=== PATIENT | female | born 1990 | race Caucasian/White ===

== ENCOUNTER 2016-07-17 11:30 | Emergency (ER) | payer BC ==
[~2016-07-17] VITALS: Ht 144.8 cm; Wt 47.6 kg
[~2016-07-17 11:30] MED LIST: AMOX500C PO; ONDA4TAB10 SL; SULF1TAB24 PO
[2016-07-17] MEDS ORDERED: birth control PO (11:50)
--- NOTE | 2016-07-17 12:21 | PHYS DOC ---
Past Medical History Past Medical History: No Pertinent History Past Surgical History: No Surgical History Alcohol Use: None Drug Use: None Adult General Chief Complaint Chief Complaint: SYNCOPE HPI HPI Patient is a 26 year old female who presents after a syncopal episode. Patient reports that she was at work when she bent over; as she stood back up she got lightheaded and lost consciousness. She says she hit her head when she fell and now has c/o throbbing HUI. No chest discomfort or SOB at this time. No prior similar episodes. No other acute complaints. Review of Systems Review of Systems Constitutional: Syncope. Denies fever or chills Eyes: Denies change in visual acuity or eye pain HENT: Denies nasal congestion or sore throat Respiratory: Denies cough or shortness of breath Cardiovascular: Denies chest pain at this time GI: Denies abdominal pain, nausea, vomiting, bloody stools or diarrhea : Denies dysuria or hematuria Musculoskeletal: Denies back pain or joint pain Integument: Denies rash or skin lesions Neurologic: Headache. Denies focal weakness or sensory changes Current Medications Current Medications Current Medications Medications (Trade) Dose Ordered Sig/Glenys Start Time Stop Time Status Last Admin Dose Admin Acetaminophen (Tylenol) 1,000 mg 1X ONCE 07/17/16 12:30 07/17/16 12:31 DC 07/17/16 13:17 1,000 MG Ciprofloxacin (Cipro) 500 mg 1X ONCE 07/17/16 13:30 07/17/16 13:31 DC 07/17/16 13:39 500 MG Allergies Allergies Allergies Coded Allergies Type Severity Reaction Last Updated Verified No Known Drug Allergies 07/17/16 No Physical Exam Physical Exam Constitutional: Well developed, well nourished, no acute distress, non-toxic appearance HENT: Normocephalic, bilateral external ears normal, no sign of trauma (no hematoma, abrasions noted) Eyes: PERRL, EOMI, conjunctiva normal, no discharge Neck: Normal range of motion, no stridor. No midline TTP, no stepoff or deformity Cardiovascular: Heart rate normal, regular rhythm, no murmur Lungs & Thorax: Bilateral breath sounds clear to auscultation Abdomen: Bowel sounds normal, soft, non-distended, no TTP Skin: Warm, dry, no erythema, no rash Back: No midline tenderness, no stepoff or deformity Extremities: No obvious deformity, no edema Neurologic: Alert and oriented X 3, GCS 15, CN II-XII grossly intact, strength intact and symmetrical throughout, sensation to light touch intact throughout, no dystaxia noted Current Patient Data Vital Signs Vital Signs Date Time Temp Pulse Resp B/P Pulse Ox O2 Delivery O2 Flow Rate FiO2 07/17/16 13:55 66 16 115/71 100 Room Air 07/17/16 11:50 98.2 98.2 Lab Values Laboratory Tests Test 07/17/16 12:09 Urine Collection Type Unknown Urine Color Yellow Urine Clarity Clear Urine pH 6.0 Urine Specific [place] 1.020 Urine Protein Negativemg/dL (NEG-TRACE) Urine Glucose (UA) Negativemg/dL (NEG) Urine Ketones (Stick) Negativemg/dL (NEG) Urine Blood Negative (NEG) Urine Nitrite Positive (NEG) Urine Bilirubin Negative (NEG) Urine Urobilinogen Dipstick 0.2mg/dL (0.2 mg/dL) Urine Leukocyte Esterase Small (NEG) Urine RBC 0/HPF (0-2) Urine WBC 5-10/HPF (0-4) Urine Squamous Epithelial Cells Mod/LPF Urine Bacteria Many/HPF (0-FEW) Urine Mucus Marked/LPF Urine Test Negative (NEG) EKG EKG EKG (my read): sinus rhythm, rate 65, normal axis, intervals wnl, no acute ischemic changes Radiology/Procedures Radiology/Procedures CT head: IMPRESSION: The CT of the head without contrast reveals no significant abnormal. CXR: IMPRESSION: No acute cardiopulmonary abnormality is detected. Course & Med Decision Making Course & Med Decision Making Pertinent Labs and Imaging studies reviewed. (See chart for details) Patient is 26 year old female who presents after syncopal episode. Likely due to orthostasis given history. No concerning findings on physical exam. Will obtain CXR, CT head, EKG, UA, urine preg screen. Dose of acetaminophen ordered for HUI. Imaging results as above. EKG ok per my read. UA indicative of UTI; dose of cipro ordered. Discussed results with patient, who is feeling better at this time. Will plan discharge home with rx for cipro, instructions for follow up, return precautions. Dragon Disclaimer Dragon Disclaimer This electronic medical record was generated, in whole or in part, using a voice recognition dictation system. Departure Departure Impression: Primary Impression: Syncope Additional Impression: UTI (urinary tract infection) Disposition: HOME, SELF-CARE Condition: IMPROVED Referrals: NO PCP (PCP) Patient Instructions: Syncope, Urinary Tract Infection Additional Instructions: Thank you for allowing us to provide care today in the Emergency Department. Take the provided medication as directed. Schedule a follow up appointment with your primary care doctor. Return promptly to the Emergency Department if you develop any new or concerning symptoms. Scripts Ciprofloxacin Hcl (Cipro)500 Mg Tablet1 Tab PO BID #10 TAB Prov:BETTE CAMARENA MD 07/17/16 Problem Qualifiers BETTE CAMARENA MD Jul 17, 2016 12:21
--- NOTE | 2016-07-17 12:28 | EKG ---
[facility] [address] [place] [address] Test Date: 2016-07-17 Test Time: 12:05:02 Pat Name: MONA GREER Department: Room: Gender: F Hospital Coder: : [id number] Requested By: BETTE CAMARENA Order Number: [id number] Reading MD: Francie Hamilton Measurements Intervals Ione Rate: 65 P: 0 NM: 164 QRS: 70 QRSD: 74 T: 18 QT: 366 QTc: 381 Interpretive Statements SINUS RHYTHM QRS(T) CONTOUR ABNORMALITY CONSISTENT WITH ANTEROSEPTAL MYOCARDIAL DAMAGE ABNORMAL ECG RI6.01 No previous ECG available for comparison Electronically Signed On 07-20-2016 0:03:48 FOOD STYLIST by Francie Hamilton
[2016-07-17] MEDS ORDERED: ACETAMINOPHEN 500 MG TABLET PO ONE (12:30)
[2016-07-17 12:37] LABS: NEG OBC UR NEG; POS OBC UR POS
[2016-07-17 12:41] LABS: BILIRUBIN,URINE NEGATIVE (NEG); GLUCOSE,URINE NEGATIVE (NEG); NITRITE,URINE POSITIVE (NEG); PROTEIN,URINE NEGATIVE (NEG-TRACE); UROBILINOGEN,URINE 0.2 mg/dL (0.2 mg/dL)
[2016-07-17 12:48] LABS: RBC,URINE 0 /HPF (0-2)
[2016-07-17 12:49] LABS: BACTERIA,URINE MANY /HPF (0-FEW); SQUAMOUS EPITHELIAL CELL,UR MOD /LPF
--- NOTE | 2016-07-17 13:14 | RAD ---
CT of the head without contrast, 07/17/2016: History: Headache The ventricles are within normal limits in size. There is no shift of the midline structures. There is no evidence of acute intracranial hemorrhage or mass effect. IMPRESSION: The CT of the head without contrast reveals no significant abnormal. PQRS Compliance Statement: One or more of the following individualized dose reduction techniques were utilized for this examination: 1. Automated exposure control 2. Adjustment of the mA and/or kV according to patient size 3. Use of iterative reconstruction technique
--- NOTE | 2016-07-17 13:25 | RAD ---
Chest, 2 views, 07/17/2016: History: Syncope, shortness of breath The heart size is normal. The lungs are clear. There is no evidence of pleural fluid. IMPRESSION: No acute cardiopulmonary abnormality is detected.
[2016-07-17] MEDS ORDERED: CIPROFLOXACIN HCL 250 MG TABLET PO ONE (13:30)
[2016-07-17] MEDS ORDERED: CIPR500T94 PO (13:41)
[2016-07-17 13:55] VITALS: BP 115/71
== END 2016-07-17 13:59 | disposition home or self-care (01) ==
LOC: ER 11:30
DX: R55 Syncope and collapse (principal); N39.0 Urinary tract infection, site not specified; R51 Headache
CPT/HCPCS: 70450; 71020; 81001; 81025; 87086; 93005; 99285-25

== ENCOUNTER → 2021-01-12 | Outpatient (CLI) | payer OTHER ==
[~2021-01-12] MED LIST changes: +CIPR500T94 PO; +birth control PO
--- NOTE | 2021-01-12 17:06 | RAD ---
EXAMINATION: US OB <14 WKS +TV CLINICAL HISTORY: Unsure dates TECHNIQUE: Sonography of the pelvis was performed by transabdominal technique. COMPARISON: None FINDINGS: GESTATION: - Position: Cephalic - Cardiac Activity: 155 bpm - [place] Rump Length: 6.6 cm - Biparietal Diameter: 2.3 cm - Head Circumference: 8.2 cm - Abdominal Circumference: 6.7 cm - Femur Length: 1.1 cm - Estimated Gestational Age: 13 weeks 2 days by composite measurements PLACENTA: - Location: Posterior - Previa: Absent - Other: No evidence of perigestational hemorrhage. AMNIOTIC FLUID VOLUME: Within normal limits UTERUS: - Size: 11.8 x 8.7 x 10.2 cm - Normal sonographic appearance. - Cervical Length: 3.7 cm RIGHT OVARY: - Size: 2.9 x 2.0 x 1.8 cm - Normal sonographic appearance and blood flow. LEFT OVARY: - Size: 3.2 x 2.1 x 2.1 cm - 1.8 cm thick-walled cyst with low-level internal echoes, possibly a corpus luteum or small hemorrha gic cyst. Normal blood flow. FREE FLUID: None. IMPRESSION: Single live intrauterine with estimated gestational age 13 weeks 2 days and estimated date of delivery 07/18/2021. Electronically signed by: Abdelrahman Nielson DO (01/12/2021 5:03 PM) [id number]
== END ==
LOC: US 14:26
PROVIDERS: ATTEND Obstetrics & Gynecology
DX: Z34.91 Encounter for supervision of normal pregnancy, unspecified, first trimester (principal); Z3A.13 13 weeks gestation of pregnancy
CPT/HCPCS: 76801

== ENCOUNTER 2021-02-02 12:36 | Emergency (ER) | payer OTHER ==
[~2021-02-02] VITALS: Ht 152.4 cm; Wt 45.4 kg
--- NOTE | 2021-02-02 12:51 | PHYS DOC ---
Past Medical History Past Medical History: No Pertinent History Additional Past Medical Histor: hx pyelonephritis Past Surgical History: No Surgical History Smoking Status: Never Smoker Alcohol Use: None Drug Use: None General Adult EDM: Chief Complaint: FLANK PAIN HPI: HPI: Patient is a 30 year old female with history of pyelonephritis who presents with 2 days of right flank pain. Constant. Does not radiate. No associated dysuria or hematuria, but does complain of increased urgency and frequency. She is approximately [address] weeks [address] Hutton of OB. Denies fever/chills. No abdominal pain. No nausea/vomiting. No diarrhea. Review of Systems: Review of Systems: Constitutional: Denies fever or chills. [] Eyes: Denies change in visual acuity. [] HENT: Denies nasal congestion or sore throat. [] Respiratory: Denies cough or shortness of breath. [] Cardiovascular: Denies chest pain or edema. [] GI: Denies abdominal pain, nausea, vomiting, bloody stools or diarrhea. [] : +Urgency, frequency, flank pain. Denies dysuria. [] Musculoskeletal: Denies back pain or joint pain. [] Integument: Denies rash. [] Neurologic: Denies headache, focal weakness or sensory changes. [] Endocrine: Denies polyuria or polydipsia. [] Lymphatic: Denies swollen glands. [] Psychiatric: Denies depression or anxiety. [] Heart Score: C/O Chest Pain: N/A Risk Factors: Risk Factors: DM, Current or recent (<one month) smoker, HTN, HLP, family history of CAD, obesity. Risk Scores: Score 0 - 3: 2.5% MACE over next 6 weeks - Discharge Home Score 4 - 6: 20.3% MACE over next 6 weeks - Admit for Clinical Observation Score 7 - 10: 72.7% MACE over next 6 weeks - Early Invasive Strategies Allergies: Allergies: Allergies Coded Allergies Type Severity Reaction Last Updated Verified No Known Drug Allergies 07/17/16 No Physical Exam: PE: Constitutional: Well developed, well nourished, no acute distress, non-toxic appearance. [] HENT: Normocephalic, atraumatic, bilateral external ears normal, oropharynx moist, no oral exudates, nose normal. [] Eyes: PERRLA, EOMI, conjunctiva normal, no discharge. [] Neck: Normal range of motion, no tenderness, supple, no stridor. [] Cardiovascular:Heart rate regular rhythm, no murmur [] Lungs & Thorax: Bilateral breath sounds clear to auscultation [] Abdomen: Gravid uterus. No abdominal ttp. Negative zayas's sign. [] Skin: Warm, dry, no erythema, no rash. [] Back: No tenderness, no CVA tenderness. [] Extremities: No tenderness, no cyanosis, no clubbing, ROM intact, no edema. [] Neurologic: Alert and oriented X 3, normal motor function, normal sensory fun ction, no focal deficits noted. [] Psychologic: Affect normal, judgement normal, mood normal. [] EKG: EKG: [] Radiology/Procedures: Radiology/Procedures: [] Course & Med Decision Making: Course & Med Decision Making Pertinent Labs and Imaging studies reviewed. (See chart for details) Patient is a 30-year-old female who is approximately 16 weeks who presents with right-sided flank discomfort, urgency, and frequency. No fevers/chills. Is afebrile on arrival and hemodynamically stable. Well- appearing on examination. UA consistent with urinary tract infection/pyelonephritis. No history of kidney stones. Do not feel that she requires any imaging at this time. Will check renal function and cell counts. Likely will be safe for discharge with amoxicillin. Dragon Disclaimer: Dragadonis Disclaimer: This electronic medical record was generated, in whole or in part, using a voice recognition dictation system. Departure Departure Impression: Primary Impression: Pyelonephritis Disposition: HOME / SELF CARE / HOMELESS Condition: STABLE Referrals: NO PCP (PCP) ALEXIA HUTTON MD Follow up with your OB to ensure your urine clears up. Additional Instructions: It appears that you have a urinary tract infection. You develop high fevers, shaking chills, worsening pain, nausea/vomiting, or other new/concerning symptoms please return to the emergency department for reevaluation. Otherwise please follow-up with your primary care doctor or OB to ensure that your urinary tract infection is adequately treated. Scripts Amoxicillin (AMOXICILLIN) 500 Mg Capsule 1 CAP PO Q8HRS for infection for 7 Days, #21 CAP Prov: HUMZA SINGH MD 02/02/21 HUMZA SINGH MD Feb 02, 2021 12:51
[2021-02-02 13:26] LABS: BILIRUBIN,URINE NEGATIVE (NEG); CLARITY,URINE CLOUDY; COLOR,URINE YELLOW; NITRITE,URINE POSITIVE (NEG); PH,URINE 6.5 (<5.0-8.0); PROTEIN,URINE NEGATIVE (NEG-TRACE)
[2021-02-02 13:35] LABS: BACTERIA,URINE MANY /HPF (0-FEW); WBC,URINE >40 /HPF (0-4)
[2021-02-02] MEDS ORDERED: ACETAMINOPHEN 500 MG TABLET PO ONE (13:45)
[2021-02-02 14:06] LABS: BASO # 0.1 x10^3/uL (0.0-0.2); BASO % 1 % (0-3); EOS # 0.1 x10^3/uL (0.0-0.7); EOS % 1 % (0-3); HEMATOCRIT 32.4 % (36.0-47.0); HEMOGLOBIN 11.4 g/dL (12.0-15.5); LYMPH % 10 % (24-48); MEAN CORPUSCULAR HEMOGLOBIN 31 pg (25-35); MEAN CORPUSCULAR HGB CONC 35 g/dL (31-37); MEAN CORPUSCULAR VOLUME 87 fL (79-100); MONO # 0.5 x10^3/uL (0.0-1.1); MONO % 5 % (0-9); NEUT # 8.4 x10^3/uL (1.8-7.7); NEUT % 84 % (31-73); PLATELET COUNT 167 x10^3/uL (140-400); RED BLOOD COUNT 3.74 x10^6/uL (3.50-5.40); RED CELL DISTRIBUTION WIDTH 13.3 % (11.5-14.5)
[2021-02-02 14:25] LABS: CALCIUM 8.5 mg/dL (8.5-10.1); CREATININE 0.6 mg/dL (0.6-1.0); POTASSIUM 4.1 mmol/L (3.5-5.1)
[2021-02-02 14:29] LABS: ALBUMIN 2.8 g/dL (3.4-5.0); ALBUMIN/GLOBULIN RATIO 0.7 (1.0-1.7); TOTAL BILIRUBIN 0.2 mg/dL (0.2-1.0); TOTAL PROTEIN 6.6 g/dL (6.4-8.2)
[2021-02-02] MEDS ORDERED: AMOX500C PO (14:42)
[2021-02-02 15:08] VITALS: BP 117/70
== END 2021-02-02 15:10 | disposition home or self-care (01) ==
LOC: ER 12:36
DX: O23.02 Infections of kidney in pregnancy, second trimester (principal); Z3A.16 16 weeks gestation of pregnancy
CPT/HCPCS: 36415; 80053; 81001; 81025; 85025; 87077; 87086; 87186; 99285

== ENCOUNTER → 2021-03-07 | Outpatient (CLI) | payer OTHER ==
--- NOTE | 2021-03-07 16:10 | RAD ---
EXAM: Ultrasound US OB >14 WEEKS 03/07/2021 10:48 AM INDICATION: , anatomy scan. Gestational age by LMP: 21 weeks 0 days. COMPARISON: None FINDINGS: There is a single living intrauterine gestation in vertex position. heart rate is 144 bpm. Plac enta is posterior. Cervix measures 4.8 cm in length. The following anatomy as visualized: Brain, cerebellum, lateral ventricles, cervical, thoracic, and lumbar spine, stomach, kidneys, bladder, three-vessel cord, cord insertion. There is suboptimal visualization of four-chamber heart, profile, and nose/lips, likely due to positioning. biometry: Biparietal diameter: 4.85 cm, 20 weeks, 5 days Head circumference: 18.49 cm, 20 weeks, 6 days Abdominal circumference: 14.58 cm, 19 weeks, 6 days Femur length: 6 3.24 cm, 20 weeks, 1 day HC/AC ratio: 1.27 STEFAN: Subjectively normal Estimated gestational age by ultrasound: 20 weeks 3 days. Estimated weight: 332 g. IMPRESSION: 1. Single living intrauterine with gestational age by ultrasound 20 weeks 3 days. Estimated weight 332 g. 2. Suboptimal visualization of four-chamber heart, profile, and nose/lips. This is likely due t o positioning. Recommend follow-up ultrasound to reevaluate. Electronically signed by: Madhuri Ambriz MD (03/07/2021 4:08 PM) [id number]
== END ==
LOC: US 11:02
PROVIDERS: ATTEND Obstetrics & Gynecology
DX: Z34.92 Encounter for supervision of normal pregnancy, unspecified, second trimester (principal); Z3A.20 20 weeks gestation of pregnancy
CPT/HCPCS: 76805

== ENCOUNTER → 2021-04-04 | Outpatient (CLI) | payer OTHER ==
--- NOTE | 2021-04-04 13:23 | RAD ---
EXAM: OBSTETRIC ULTRASOUND. HISTORY: Follow-up four-chamber heart and facial morphology from prior imaging. COMPARISON: 03/07/2021. FINDINGS: Directed sonographic evaluation of the uterus, fetus and maternal pelvis was performed. There is a single fetus in vertex presentation. heart rate is 132-143 bpm. The placenta is post erior. There is no evidence of placenta previa. Amniotic fluid volume appears normal with amniotic fl uid index 15 cm. The cervix is closed and measures 4.5 cm. The heart is four-chamber. Facial and nose/lip morphology appears normal. The maternal adnexa are obscured by positioning currently. IMPRESSION: 1. Four-chamber heart and facial morphology appear normal. 2. Single fetus in vertex presentation. heart rate 132 bpm. Electronically signed by: Nba Morgan MD (04/04/2021 1:21 PM) [id number]
== END ==
LOC: US 12:32
PROVIDERS: ATTEND Obstetrics & Gynecology
DX: Z34.90 Encounter for supervision of normal pregnancy, unspecified, unspecified trimester (principal); Z3A.00 Weeks of gestation of pregnancy not specified
CPT/HCPCS: 76815

== ENCOUNTER → 2021-04-24 | Outpatient (CLI) | payer OTHER ==
[2021-04-24 11:45] LABS: HEMATOCRIT 33.2 % (36.0-47.0); HEMOGLOBIN 11.5 g/dL (12.0-15.5); MEAN CORPUSCULAR HEMOGLOBIN 31 pg (25-35); MEAN CORPUSCULAR HGB CONC 35 g/dL (31-37); MEAN CORPUSCULAR VOLUME 89 fL (79-100); PLATELET COUNT 217 x10^3/uL (140-400); RED BLOOD COUNT 3.73 x10^6/uL (3.50-5.40); RED CELL DISTRIBUTION WIDTH 12.9 % (11.5-14.5); WHITE BLOOD COUNT 10.6 x10^3/uL (4.0-11.0)
[2021-04-25 17:23] LABS: RUBELLA IGG ANTIBODY 1.91 index (Immune >0.99)
== END ==
LOC: LAB 09:57
PROVIDERS: ATTEND Obstetrics & Gynecology
DX: Z34.92 Encounter for supervision of normal pregnancy, unspecified, second trimester (principal); Z3A.00 Weeks of gestation of pregnancy not specified
CPT/HCPCS: 36415; 82950; 85027; 85660; 86592; 86703; 86762; 86787; 86803; 86850; 86900; 86901; 87340

== ENCOUNTER 2021-07-04 15:34 | Observation (INO) | payer OTHER ==
[2021-07-04] MEDS ORDERED: IV RINGERS,LACTATED 1000ML 1,000 ML IV SCH (16:00)
[2021-07-04 16:04] LABS: BILIRUBIN,URINE NEGATIVE (NEG); CLARITY,URINE CLEAR; COLOR,URINE YELLOW; NITRITE,URINE NEGATIVE (NEG); PROTEIN,URINE NEGATIVE (NEG-TRACE)
[2021-07-04 16:12] LABS: BACTERIA,URINE FEW /HPF (0-FEW)
[2021-07-04 16:13] LABS: RBC,URINE 0 /HPF (0-2); YEAST,URINE PRESENT /HPF
== END 2021-07-04 19:02 | disposition home or self-care (01) ==
LOC: 3 SO LND 15:34
PROVIDERS: ADMIT Obstetrics & Gynecology; ATTEND Obstetrics & Gynecology
DX: O62.9 Abnormality of forces of labor, unspecified (principal); O26.893 Other specified pregnancy related conditions, third trimester; R10.2 Pelvic and perineal pain; Z3A.38 38 weeks gestation of pregnancy
CPT/HCPCS: 59025; 81001; 87086; G0378; G0379

== ENCOUNTER → 2021-07-17 | Outpatient (CLI) | payer OTHER ==
[~2021-07-17] MED LIST changes: +OXYC1TAB15 PO
== END ==
LOC: LAB 14:19
PROVIDERS: ATTEND Obstetrics & Gynecology
DX: Z01.812 Encounter for preprocedural laboratory examination (principal); Z20.822 Contact with and (suspected) exposure to COVID-19
CPT/HCPCS: U0003; U0005

== ENCOUNTER 2021-07-18 16:50 | Inpatient (IN) | payer OTHER ==
[~2021-07-18] VITALS: Ht 149.9 cm; Wt 66.0 kg
[~2021-07-18 16:50] MED LIST changes: -OXYC1TAB15 PO
[2021-07-18] MEDS ORDERED: LIDOCAINE 1% PF 30 ML VIAL. INJ PRN (17:00)
[2021-07-18] MEDS ORDERED: ACETAMINOPHEN 325 MG TABLET. PO PRN (17:00)
[2021-07-18] MEDS ORDERED: 0.9 % SODIUM CHLORIDE 10 ML DISP.SYRIN. IV PRN (17:00)
[2021-07-18] MEDS ORDERED: BUTORPHANOL 2 MG/ML VIAL. IVP PRN ×2 (17:00)
[2021-07-18] MEDS ORDERED: TERBUTALINE 1 MG/ML VIAL. SQ PRN (17:00)
[2021-07-18] MEDS ORDERED: OXYTOCIN 30 UNIT/500 ML PREMIX 500 ML IV PRN ×2 (17:00)
[2021-07-18] MEDS: IV RINGERS,LACTATED 1000ML 1,000 ML IV SCH ×2 (17:42→22:58)
[2021-07-18 17:52] VITALS: BP 141/92
[2021-07-18] MEDS ORDERED: DINOPROSTONE 10 MG SUPP.VAG VG ONE (18:00)
[2021-07-18 18:36] LABS: COLOR,URINE YELLOW
[2021-07-18 18:37] LABS: BACTERIA,URINE 0 /HPF (0-FEW); BILIRUBIN,URINE NEGATIVE (NEG); CLARITY,URINE CLEAR; NITRITE,URINE NEGATIVE (NEG); PH,URINE 6.5 (<5.0-8.0); PROTEIN,URINE NEGATIVE (NEG-TRACE); RBC,URINE >40 /HPF (0-2)
[2021-07-18 18:39] LABS: BASO % 1 % (0-3); EOS % 0 % (0-3); HEMATOCRIT 35.3 % (36.0-47.0); HEMOGLOBIN 12.4 g/dL (12.0-15.5); LYMPH % 11 % (24-48); MEAN CORPUSCULAR HEMOGLOBIN 28 pg (25-35); MEAN CORPUSCULAR HGB CONC 35 g/dL (31-37); MEAN CORPUSCULAR VOLUME 81 fL (79-100); MONO % 5 % (0-9); NEUT # 12.7 x10^3/uL (1.8-7.7); NEUT % 84 % (31-73); PLATELET COUNT 236 x10^3/uL (140-400); RED BLOOD COUNT 4.36 x10^6/uL (3.50-5.40); RED CELL DISTRIBUTION WIDTH 14.3 % (11.5-14.5); WHITE BLOOD COUNT 15.1 x10^3/uL (4.0-11.0)
[2021-07-18 18:40] LABS: BASO # 0.1 x10^3/uL (0.0-0.2); EOS # 0.1 x10^3/uL (0.0-0.7); LYMPH # 1.6 x10^3/uL (1.0-4.8); MONO # 0.7 x10^3/uL (0.0-1.1)
[2021-07-18 18:44] LABS: ALBUMIN 2.7 g/dL (3.4-5.0); ALBUMIN/GLOBULIN RATIO 0.6 (1.0-1.7); CALCIUM 8.2 mg/dL (8.5-10.1); CREATININE 0.6 mg/dL (0.6-1.0); GFR 118.2; POTASSIUM 4.3 mmol/L (3.5-5.1); TOTAL BILIRUBIN 0.2 mg/dL (0.2-1.0); TOTAL PROTEIN 7.2 g/dL (6.4-8.2); URIC ACID 4.5 mg/dL (2.6-6.0)
[2021-07-18 18:48] LABS: CREATININE,RANDOM URINE 148.8 mg/dL (Not Establ.)
[2021-07-18 19:25] LABS: % LYMPHS 11 % (24-48); % MONOS 6 % (0-10); % SEGS 83 % (35-66); PLT ESTIMATE ADEQUATE (ADEQUATE)
[2021-07-19] MEDS ORDERED: ceFAZolin SODIUM IV Push 1 GM VIAL. IVP ONE (02:00)
[2021-07-19] MEDS ORDERED: AZITHROMYCIN 500 MG in IV NORMAL SALINE 250ML 250 ML IV ONE (02:30)
--- NOTE | 2021-07-19 03:02 | PDOC1 ---
[employer] H&P Date of Admission: Date of Admission: Jul 18, 2021 at 16:50 History of Present Illness: EDC: 07/22/21 LMP: 10/15/20 31y @ 39.4 by L=7 who presented for scheduled indxn on 07/18/21. Over the last month the pt has began to develop BP issues. It was thought at times to be related to issues outside of the , but it has persisted. PIH labs were obtained on admission and returned nml. The pt remained with s/s of preecl ampsia. On arrival a cervidil was placed at 1800. At the time the pt was found to have a cervical dilation of 1 cm. At around 0035, the pt experienced SROM. At 0047 I was called to see the pt for a prolong decel. At 0055 the FHT went from a baseline of 120s to the 70s. After resuscitation for sometime, the FHT would not recover so the pt was taken to the OR around 0106. In the back the ba by was placed on the monitor and was found to have a baseline of 150s. Few acels were noted, but the pt was having possible late decels with ctxs. She was dilated to 2cm at the time. Discussion was held with the pt regarding continuing the labor vs a C/S for a cat II FHT remote from delivery. PMH: Kidney infections, Kidney stones PSH: Denies Meds: PNV All: NKDA OBHx: G1 SH: no tob, no EtOH FH: noncontributory Medications: Meds: Current Medications Medications (Trade) Dose Ordered Sig/Glenys Route PRN Reason Start Time Stop Time Status Last Admin Dose Admin Ringer's Solution 1,000 ml @ 125 mls/hr Q8H IV 07/18/21 17:00 07/18/21 22:58 Butorphanol Tartrate (Stadol) 1 mg PRN Q1HR PRN IVP mild to moderate labor pain 07/18/21 17:00 07/18/21 23:45 Acetaminophen (Tylenol) 650 mg PRN Q6HRS PRN PO MILD PAIN / TEMP > 100.3'F 07/18/21 17:00 07/18/21 21:49 Dinoprostone (Cervidil) 10 mg 1X ONCE VG 07/18/21 18:00 07/18/21 18:01 DC 07/18/21 17:43 Allergies: Coded Allergies: No Known Drug Allergies (Unverified , 07/17/16) Physical Exam: Vital Signs: Vital Signs Date Time Temp Pulse Resp B/P (MAP) Pulse Ox O2 Delivery O2 Flow Rate FiO2 07/18/21 23:45 16 98 Room Air 07/18/21 17:52 98.2 75 141/92 (108) 98.2 PE: GENERAL: No apparent distress. Alert and oriented. HEENT: Head normocephalic, atraumatic. NECK: Supple LUNGS: Clear to auscultation. HEART: RRR, S1, S2 present, pulses intact ABDOMEN: Soft, positive bowel sounds. EXTREMITIES: No cyanosis or edema. NEUROLOGIC: Normal speech, normal tone PSYCHIATRIC: Normal affect, normal mood. SKIN: No ulceration. FHT: 140s no acels/variable, possibly late decels/mLTV [place]: 5 min SVE: 2/60/-3 Labs: Laboratory Tests Test 07/18/21 17:12 07/18/21 17:27 Urine Collection Type Unknown Urine Color Yellow Urine Clarity Clear Urine pH 6.5 (<5.0-8.0) Urine Specific [place] 1.020 (1.000-1.030) Urine Protein Negative mg/dL (NEG-TRACE) Urine Glucose (UA) Negative mg/dL (NEG) Urine Ketones (Stick) Negative mg/dL (NEG) Urine Blood Moderate (NEG) Urine Nitrite Negative (NEG) Urine Bilirubin Negative (NEG) Urine Urobilinogen Dipstick 1.0 mg/dL (0.2 mg/dL) Urine Leukocyte Esterase Small (NEG) Urine RBC >40 /HPF (0-2) Urine WBC 1-4 /HPF (0-4) Urine Squamous Epithelial Cells Mod /LPF Urine Bacteria 0 /HPF (0-FEW) Urine Mucus Marked /LPF Urine Random Creatinine 148.8 mg/dL (Not Establ.) Urine Random Total Protein 34.6 mg/dL (Not Establ.) Urine Protein/Creatinine Ratio 233 mg/g (0-200) H White Blood Count 15.1 x10^3/uL (4.0-11.0) H Red Blood Count 4.36 x10^6/uL (3.50-5.40) Hemoglobin 12.4 g/dL (12.0-15.5) Hematocrit 35.3 % (36.0-47.0) L Mean Corpuscular Volume 81 fL (79-100) Mean Corpuscular Hemoglobin 28 pg (25-35) Mean Corpuscular Hemoglobin Concent 35 g/dL (31-37) Red Cell Distribution Width 14.3 % (11.5-14.5) Platelet Count 236 x10^3/uL (140-400) Neutrophils (%) (Auto) 84 % (31-73) H Lymphocytes (%) (Auto) 11 % (24-48) L Monocytes (%) (Auto) 5 % (0-9) Eosinophils (%) (Auto) 0 % (0-3) Basophils (%) (Auto) 1 % (0-3) Neutrophils # (Auto) 12.7 x10^3/uL (1.8-7.7) H Lymphocytes # (Auto) 1.6 x10^3/uL (1.0-4.8) Monocytes # (Auto) 0.7 x10^3/uL (0.0-1.1) Eosinophils # (Auto) 0.1 x10^3/uL (0.0-0.7) Basophils # (Auto) 0.1 x10^3/uL (0.0-0.2) Segmented Neutrophils % 83 % (35-66) H Lymphocytes % 11 % (24-48) L Monocytes % 6 % (0-10) Platelet Estimate Adequate (ADEQUATE) Sodium Level 136 mmol/L (136-145) Potassium Level 4.3 mmol/L (3.5-5.1) Chloride Level 104 mmol/L (98-107) Carbon Dioxide Level 19 mmol/L (21-32) L Anion Gap 13 (6-14) Blood Urea Nitrogen 10 mg/dL (7-20) Creatinine 0.6 mg/dL (0.6-1.0) Estimated GFR (Cockcroft-Gault) 118.2 BUN/Creatinine Ratio 17 (6-20) Glucose Level 77 mg/dL (70-99) Uric Acid 4.5 mg/dL (2.6-6.0) Calcium Level 8.2 mg/dL (8.5-10.1) L Total Bilirubin 0.2 mg/dL (0.2-1.0) Aspartate Amino Transferase (AST) 22 U/L (15-37) Alanine Aminotransferase (ALT) 29 U/L (14-59) Alkaline Phosphatase 222 U/L (46-116) H Lactate Dehydrogenase 250 U/L (81-234) H Total Protein 7.2 g/dL (6.4-8.2) Albumin 2.7 g/dL (3.4-5.0) L Albumin/Globulin Ratio 0.6 (1.0-1.7) L Treponema pallidum Antibody Nonreactive (Nonreactive) Laboratory Tests 07/18/21 17:27 Laboratory Tests 07/18/21 17:27 Laboratory Tests 07/18/21 17:27 Assessment & Plan: A/P 31y @ 39.4 by L=7 1.) Indxn cervidil placed at 1800 2.) GHTN PIH labs wnl, BPs nml to mild, no s/s of preeclampsia 3.) Krishan NI 4.) TDAP given 05/29/21 5.) Fetus cat II FHT 6.) GBS pos 7.) Wing - ALEXIA Delgado MD Jul 19, 2021 03:02
--- NOTE | 2021-07-19 03:10 | PDOC4 ---
OPERATIVE NOTE: PreOp Dx: 1.) IUP @ 39.4 by L=7, 2.) cat II FHT remote from delivery, 3.) Indxn, 4.) GHTN, 5.) Krishan NI, 6.) GBS pos PostOp Dx: same Procedure: Primary LTCS Surgeon: Bowen Hutton Anesthesia: Spinal EBL: 600 cc Fluids 1800 cc UOP: 225 cc Complications: None Findings: viable male delivered at 0202. Wt 5lb 10.7oz. APGARS 8/9. Nml tubes and ovaries. Path: Cord blood, cord ABG, and placenta ALEXIA HUTTON MD Jul 19, 2021 03:10
[2021-07-19] MEDS ORDERED: OXYTOCIN 30 UNIT/500 ML PREMIX 500 ML IV PRN (03:15)
[2021-07-19] MEDS ORDERED: BENZOCAINE 20% TOPICAL AEROSOL SPRAY 57GM CAN. TP PRN (03:15)
[2021-07-19] MEDS ORDERED: diphenhydrAMINE ORAL ELIXIR 12.5 MG/5 ML ML PO PRN (03:15)
[2021-07-19] MEDS ORDERED: 0.9 % SODIUM CHLORIDE 10 ML DISP.SYRIN. IV PRN (03:15)
[2021-07-19] MEDS ORDERED: TDaP (BOOSTRIX) per PROTOCOL. MC PRN (03:15)
[2021-07-19] MEDS ORDERED: MMR per PROTOCOL. MC PRN (03:15)
[2021-07-19] MEDS ORDERED: ACETAMINOPHEN 325 MG TABLET. PO PRN (03:15)
--- NOTE | 2021-07-19 03:50 | OP ---
DATE OF SURGERY: 07/19/2021 PREOPERATIVE DIAGNOSES: 1. Intrauterine at 39 weeks and 4 days by last menstrual period equal to a 7-week ultrasound. 2. Category 2 heart tracing remote from delivery. 3. Induction of labor. 4. Gestational hypertension. 5. Varicella nonimmune. 6. Group B streptococcus positive. POSTOPERATIVE DIAGNOSES: 1. Intrauterine at 39 weeks and 4 days by last menstrual period equal to a 7-week ultrasound. 2. Category 2 heart tracing remote from delivery. 3. Induction of labor. 4. Gestational hypertension. 5. Varicella nonimmune. 6. Group B streptococcus positive. PROCEDURE: Primary low transverse . SURGEON: Ulisses Londono MD ANESTHESIA: Spinal. ESTIMATED BLOOD LOSS: 600 mL. FLUIDS: 1800 mL. URINE OUTPUT: 225 mL. COMPLICATIONS: None. FINDINGS: Viable male infant delivered at 0202 weighing 5 pounds 10.7 ounces with Apgars of 8 and 9. Normal tubes and ovaries noted. PATHOLOGY: Cord blood, cord ABG and placenta. INDICATIONS: The patient is a 31-year-old 1, para 0 who presented to Labor and Delivery at 39 weeks and 3 days by LMP equal to a 7-week ultrasound for induction of labor. The patient had a Cervidil placed around 1800. Over the last month, the patient had been developing blood pressure issues. It was thought at that time that it may be related to issues outside of , but it continued to persist. On admission to Labor and Delivery, [facility] labs were sent and returned normal. The patient remained with no signs or symptoms of preeclampsia. On presentation, the patient was found to be dilated 1 cm. At around 0035, the patient experienced spontaneous rupture of membranes and then around 0047, I was called for the patient having a decels. At around 0055, the patient's heart tones went from a baseline of 120s to the 70s for a prolonged period. After removing the Cervidil and resuscitation, the heart tones would not recover, so the patient was brought to the operating room around 0106. In the operating room, the baby's baseline returned back to the baseline of 150s. At that time few accels were noted and it appeared that the baby was having possible late decelerations with contractions. At that time, the patient was dilated to 2 cm. A discussion was held with the patient regarding continuing labor versus performing a section for her category 2 heart tracing since she was remote from delivery. A decision was ultimately made for a primary . DESCRIPTION OF PROCEDURE: The patient was taken to the operating room where a spinal was placed without difficulty. The patient was prepped and draped in normal sterile fashion. A Pfannenstiel skin incision was made approximately 2 cm above her pubic symphysis and carried down to the underlying layer of fascia. The fascia was then nicked in the midline. The fascial incision was then extended with Adamson scissors. Superior aspect of the fascial incision was then grasped with 2 Gagan clamps, elevated and the underlying rectus muscle was dissected off with Adamson scissors. Attention was then turned to the inferior aspect of the fascial incision, which was grasped with Gagan clamps, elevated and the underlying rectus muscle was dissected off with Adamson scissors. The midline of the rectus muscle was identified and . The peritoneum was then grasped with 2 hemostats and tented up. Metzenbaum scissors were used to enter the peritoneal cavity sharply. At that point, the peritoneal incision was then extended superiorly and inferiorly with good visualization of the bladder with traction and countertraction. An Donal ring was then placed in the abdomen to better visualize the lower uterine segment. A bladder flap was created with the Metzenbaum scissors. The lower uterine segment was then incised in transverse fashion with the scalpel. A hysterotomy was extended with traction and countertraction. At that point, the head was flexed and brought through the hysterotomy. The rest of the infant was delivered atraumatically. The nose and mouth were bulb suctioned and the cord was double clamped and cut and the was handed over to the waiting mortar mixer operator. The placenta was then removed manually and the uterus was cleared of all clots and debris. At that point, the uterine incision was repaired with #1 chromic in a running locked fashion. A second layer of the same suture was used to imbricate. At that point, the gutters were copiously irrigated and cleared of all clots and debris. The peritoneum was closed with 2-0 Vicryl in a running fashion. The muscle was reapproximated with 2-0 Vicryl in a running fashion. The fascia was then closed with 0 Vicryl in a running fashion. The skin was closed with 3-0 Monocryl in a subcuticular manner. Sponge, laps and needles were correct x 3. 2 grams of Ancef as well as 500 mg of azithromycin were given prior to the procedure. The patient was taken to recovery room in stable condition. MAURICIO/BECCA DR: Milagro TID: [id number] MTDD
[2021-07-19] MEDS: ONDANSETRON PF 4 MG/2 ML VIAL. IVP PRN ×2 (04:14→13:08)
[2021-07-19] MEDS ORDERED: PENICILLIN G K 5,000,000 UNIT in IV DEXTROSE 5% 100ML 100 ML IV ONE (05:00)
[2021-07-19 07:15] VITALS: BP 117/76
[2021-07-19] MEDS: FERROUS SULFATE 325 MG TABLET. PO SCH ×2 (08:00→17:00)
[2021-07-19] MEDS: PRENATAL MULTIVITAMIN TABLET. PO SCH (09:00)
[2021-07-19] MEDS ORDERED: MULTIVITAMIN with MINERAL TABLET. PO SCH (09:00)
[2021-07-19] MEDS ORDERED: PENICILLIN G K 2,500,000 UNIT in IV DEXTROSE 5% 50 ML IV SCH (09:00)
[2021-07-19] MEDS: KETOROLAC 30 MG/ML VIAL. IVP PRN ×2 (10:41→17:46)
[2021-07-19 11:50] VITALS: BP 119/77
[2021-07-19 16:00] VITALS: BP 107/70
[2021-07-19] MEDS: DOCUSATE SODIUM 100 MG CAPSULE. PO PRN (21:59)
[2021-07-19] MEDS: oxyCODONE/APAP 5/325 1 TAB TABLET PO PRN (21:59)
[2021-07-19 22:01] VITALS: BP 116/70
[2021-07-20 04:34] LABS: HEMATOCRIT 30.4 % (36.0-47.0); HEMOGLOBIN 10.1 g/dL (12.0-15.5); RED BLOOD COUNT 3.7 x10^6/uL (3.50-5.40); RED CELL DISTRIBUTION WIDTH 14.5 % (11.5-14.5); WHITE BLOOD COUNT 12.9 x10^3/uL (4.0-11.0)
[2021-07-20 04:59] VITALS: BP 122/69
[2021-07-20] MEDS: IBUPROFEN 400 MG TABLET. PO PRN ×2 (05:44→16:35)
[2021-07-20] MEDS: oxyCODONE/APAP 5/325 1 TAB TABLET PO PRN ×5 (05:44→20:48)
[2021-07-20] MEDS: FERROUS SULFATE 325 MG TABLET. PO SCH ×2 (08:00→17:00)
--- NOTE | 2021-07-20 09:25 | PDOC ---
FITNESS FLOOR ATTENDANT PROGRESS NOTE Date of Service: DATE: 07/20/21 TIME: 09:25 Subjective: Pt with good pain control. Felicity PO. Voiding. Minimal lochia. Objective: Vital Signs: Vital Signs Date Time Temp Pulse Resp B/P (MAP) Pulse Ox O2 Delivery O2 Flow Rate FiO2 07/19/21 07:15 97.7 84 16 117/76 (90) 98 Room Air 97.7 Vital Signs Date Time Temp Pulse Resp B/P (MAP) Pulse Ox O2 Delivery O2 Flow Rate FiO2 07/20/21 07:32 Room Air 07/20/21 04:59 97.5 60 14 122/69 (86) 95 97.5 Labs: Laboratory Tests Test 07/20/21 03:55 White Blood Count 12.9 x10^3/uL (4.0-11.0) H Red Blood Count 3.70 x10^6/uL (3.50-5.40) Hemoglobin 10.1 g/dL (12.0-15.5) L Hematocrit 30.4 % (36.0-47.0) L Mean Corpuscular Volume 82 fL (79-100) Mean Corpuscular Hemoglobin 27 pg (25-35) Mean Corpuscular Hemoglobin Concent 33 g/dL (31-37) Red Cell Distribution Width 14.5 % (11.5-14.5) Platelet Count 147 x10^3/uL (140-400) Laboratory Tests 07/20/21 03:55 Laboratory Tests 07/20/21 03:55 Physical Exam: GENERAL: No apparent distress. Alert and oriented. HEENT: Head normocephalic, atraumatic. NECK: Supple LUNGS: Clear to auscultation. HEART: RRR, S1, S2 present, pulses intact ABDOMEN: Soft, positive bowel sounds. EXTREMITIES: No cyanosis or edema. NEUROLOGIC: Normal speech, normal tone PSYCHIATRIC: Normal affect, normal mood. SKIN: No ulceration. FFNT below umb No C/C/E Inc: C/D/I Assessment & Plan: A/P 31y POD #1 s/p primary LTCS for cat II FHT remote from delivery 1.) PO doing well 2.) GHTN PI[facility] labs wnl, BPs nml since delivery, no s/s of preeclampsia 3.) Krishan NI 4.) TDAP given 05/29/21 5.) Hgb 12.4 -> 10.1 6.) Wing Frias 7.) Cont PO care ALEXIA HUTTON MD Jul 20, 2021 09:25
[2021-07-20] MEDS: DOCUSATE SODIUM 100 MG CAPSULE. PO PRN (11:28)
[2021-07-20] MEDS: PRENATAL MULTIVITAMIN TABLET. PO SCH (11:28)
[2021-07-20 11:29] VITALS: BP 108/69
[2021-07-20 17:30] VITALS: BP 111/81
[2021-07-20 20:00] VITALS: BP 140/87
[2021-07-21 00:30] VITALS: BP 142/71
[2021-07-21] MEDS: IBUPROFEN 400 MG TABLET. PO PRN ×2 (00:32→16:03)
[2021-07-21 05:45] VITALS: BP 143/66
[2021-07-21] MEDS: FERROUS SULFATE 325 MG TABLET. PO SCH (08:00)
[2021-07-21] MEDS: DOCUSATE SODIUM 100 MG CAPSULE. PO PRN ×2 (08:32→16:02)
[2021-07-21] MEDS: PRENATAL MULTIVITAMIN TABLET. PO SCH (08:32)
[2021-07-21] MEDS: oxyCODONE/APAP 5/325 1 TAB TABLET PO PRN ×2 (08:33→16:02)
--- NOTE | 2021-07-21 09:44 | PDOC ---
SECURITY AGENT PROGRESS NOTE Date of Service: DATE: 07/21/21 TIME: 09:43 Subjective: Pt with good pain control. Felicity PO. Voiding. Minimal lochia. Denies HUI, changes in vision, or abd pain. Objective: Vital Signs: Vital Signs Date Time Temp Pulse Resp B/P (MAP) Pulse Ox O2 Delivery O2 Flow Rate FiO2 07/20/21 07:32 Room Air 07/20/21 11:29 98.0 70 18 108/69 (82) 96 98.0 Vital Signs Date Time Temp Pulse Resp B/P (MAP) Pulse Ox O2 Delivery O2 Flow Rate FiO2 07/21/21 08:33 Room Air 07/21/21 05:45 98.0 58 16 143/66 (91) 98 98.0 Physical Exam: GENERAL: No apparent distress. Alert and oriented. HEENT: Head normocephalic, atraumatic. NECK: Supple LUNGS: Clear to auscultation. HEART: RRR, S1, S2 present, pulses intact ABDOMEN: Soft, positive bowel sounds. EXTREMITIES: No cyanosis or edema. NEUROLOGIC: Normal speech, normal tone PSYCHIATRIC: Normal affect, normal mood. SKIN: No ulceration. FFNT below umb No C/C/E Inc: C/D/I Assessment & Plan: A/P 31y POD #2 s/p primary LTCS for cat II FHT remote from delivery 1.) PO doing well 2.) GHTN [facility] labs wnl, mild range BPs have returned this am, no s/s of preeclampsia 3.) Krishan NI 4.) TDAP given 05/29/21 5.) Hgb 12.4 -> 10.1 6.) Boy Rodriguez 7.) Cont PO care ALEXIA HUTTON MD Jul 21, 2021 09:44
[2021-07-21 11:23] VITALS: BP 145/87
[2021-07-21 16:08] VITALS: BP 149/84
[2021-07-21 20:00] VITALS: BP 145/76
[2021-07-22] MEDS: IBUPROFEN 400 MG TABLET. PO PRN ×2 (00:11→08:36)
[2021-07-22 00:15] VITALS: BP 133/77
[2021-07-22 04:00] VITALS: BP 133/61
[2021-07-22 08:21] VITALS: BP 133/86
[2021-07-22] MEDS: DOCUSATE SODIUM 100 MG CAPSULE. PO PRN (08:34)
[2021-07-22] MEDS: PRENATAL MULTIVITAMIN TABLET. PO SCH (08:35)
[2021-07-22] MEDS ORDERED: OXYC1TAB15 PO (09:18)
--- NOTE | 2021-07-22 09:26 | PDOC ---
TAXI DRIVER PROGRESS NOTE Date of Service: DATE: 07/22/21 TIME: 09:25 Subjective: Pt with good pain control. Felicity PO. Voiding. Minimal lochia. Denies HUI, changes in vision, or abd pain. Objective: Vital Signs: Vital Signs Date Time Temp Pulse Resp B/P (MAP) Pulse Ox O2 Delivery O2 Flow Rate FiO2 07/21/21 07:45 Room Air 07/21/21 11:23 97.6 77 16 145/87 (106) 98 97.6 Vital Signs Date Time Temp Pulse Resp B/P (MAP) Pulse Ox O2 Delivery O2 Flow Rate FiO2 07/22/21 08:21 98.6 65 16 133/86 (102) 97 Room Air 98.6 Physical Exam: GENERAL: No apparent distress. Alert and oriented. HEENT: Head normocephalic, atraumatic. NECK: Supple LUNGS: Clear to auscultation. HEART: RRR, S1, S2 present, pulses intact ABDOMEN: Soft, positive bowel sounds. EXTREMITIES: No cyanosis or edema. NEUROLOGIC: Normal speech, normal tone PSYCHIATRIC: Normal affect, normal mood. SKIN: No ulceration. FFNT below umb No C/C/E Inc: C/D/I Assessment & Plan: A/P 31y POD #3 s/p primary LTCS for cat II FHT remote from delivery 1.) PO doing well 2.) GHTN [facility] labs wnl, BPs nml to mild since delivery, no s/s of preeclampsia 3.) Krishan NI 4.) TDAP given 05/29/21 5.) Hgb 12.4 -> 10.1 6.) Boy Rodriguez 7.) D/c home ALEXIA HUTTON MD Jul 22, 2021 09:26
--- NOTE | 2021-07-22 10:02 | DS ---
DATE OF DISCHARGE: 07/22/2021 ADMISSION DIAGNOSES: 1. Intrauterine at 39 weeks and 3 days by LMP equal to a 7-week ultrasound. 2. Induction of labor. 3. Gestational hypertension. 4. Varicella nonimmune. 5. Status post Tdap. 6. Group B streptococcus positive. DISCHARGE DIAGNOSES: 1. Intrauterine at 39 weeks and 3 days by LMP equal to a 7-week ultrasound. 2. Induction of labor. 3. Gestational hypertension. 4. Varicella nonimmune. 5. Status post Tdap. 6. Group B streptococcus positive. 7. Category 2 heart tracing remote from delivery. PROCEDURE: Primary low transverse . BRIEF HOSPITAL COURSE: The patient is a 31-year-old 1, para 0, who presented to Labor and Delivery at 39 weeks and 3 days by LMP equal to a 7-week ultrasound for induction of labor. The patient had a Cervidil placed around 1800 hours. Of note, over the last couple of months, the patient had developing blood pressure issues, initially it was thought that it was related to issues outside of , but the mild range blood pressures persisted on admission to Labor and Delivery. [facility] labs were sent and returned normal. The patient remained without any signs or symptoms of preeclampsia. The patient was found to be dilated to 1 cm at the time of her Cervidil placing. Around 0035 hours, the patient experienced spontaneous rupture of membrane and then around 0047 hours, began to develop variable decels. At around 0055 hours, the patient's baseline went from 120s to 70s for a prolonged period of time. The Cervidil was removed. Resuscitation efforts were undertaken. The heart tracing did not improve, so the patient was brought to the OR. Back in the operating room around 0106 hours, the patient was placed back on the monitor with baseline 150s. At that time, few accels were noted and appeared that the baby was possibly having late decelerations with contractions. The patient was only dilated to 2 cm. At that time, discussion was held with the patient regarding continue labor versus section for category 2 heart tracing. The decision was ultimately made for primary . The patient underwent said procedure. See operative note for full detail. By postoperative day #3, the patient was meeting all discharge criteria and was subsequently discharged home. Of note, after delivery, the patient continued to have normal to mild range blood pressures and her hemoglobin on admission was found to be 12.4 and after delivery was found to be 10.1. DISCHARGE INSTRUCTIONS: The patient was told not to lift anything greater than 20 pounds, have pelvic rest for 6 weeks, not to drive on narcotics. CALL IF: The patient was to call if she had fevers, chills, nausea, vomiting, abdominal pain or any additional questions or concerns. FOLLOWUP APPOINTMENT: The patient was to follow up on 07/31/2021 at 11:15 a.m. for an incision check. DISCHARGE MEDICATIONS: The patient was given a prescription for Percocet 5, 15 pills; Motrin 800 mg, 30 pills and Colace 100 mg, [address]: Milagro TID: [id number]
[2021-07-22] MEDS: oxyCODONE/APAP 5/325 1 TAB TABLET PO PRN (11:30)
[2021-07-22 12:20] VITALS: BP 143/85
--- NOTE | 2021-07-22 12:40 | NUR ---
Dismissed to home with baby in car seat to mother in car. Amb per pt request to car. [facility] Crook on feet No pain at present. Discharge instructions given with copies given
--- NOTE | 2021-07-24 16:06 | PATHOLOGY ---
[facility] Accession Number: [id number] . 01 Material submitted: . placenta - PLACENTA AND CORD. Modifiers: CORD . 01 Clinical history: . PAINTER , CERVADIL INDUCTION, (SEE REQ) REASSURING HEART TONES SECTION LIVE MALE S/S PRECLAMSIA, PROLONGED (SEE REQ) . 02 Diagnosis: Placenta, section: - Mature painter placenta weighing 308 grams (less than the 3rd percentile for a 40-week gestation). - Focally thin (0.5 cm in diamter) 3-vessel umbilical cord with eccentric insertion into the chorionic plate. - Meconium staining of membranes. - Laminar decidual necrosis. - Reactive Krissy-Al change of chorionic villi, consistent with maternal malperfusion. - Villous edema. (MLK:summer; 07/20/2021) MBR 07/24/2021 1541 Local . 02 Electronically signed: . Mannie Arzola MD, Pathologist NPI- [id number] . 01 Gross description: . Fixative: Formalin Labeled: Placenta Specimen received: Painter placenta with attached membranes, and attached and detached portions of umbilical cord. Dimensions: 16.4 x 13.2 x 2.0 cm membranes appearance: Perry-pink, cloudy, and fragmented. Completeness cannot be determined due to fragmentation. membrane insertion: Marginal Umbilical cord: 23.5 cm in length, 1.0-1.2 cm in diameter Umbilical cord insertion: Eccentric, 6.0 cm from the closest placental disc edge Number of umbilical vessels: 3 Umbilical cord appearance: Perry-white, displaying a 3 coils per 10 cm segment Trimmed placental weight: 308 g surface: Vazquez-purple, displaying a normal arborizing vasculature pattern, minimal subchorionic fibrin deposition and near complete amnion separation. Maternal surface: Appears complete, perry-red to brown, with a moderate amount of surface calcifications comprising less than 10% of the total parenchymal volume. Parenchyma: Red, congested with no discrete lesions grossly identified. . Braided Rug Maker sections are submitted as follows: A1 proximal and distal umbilical cord A2 membranes, rolled A3 shipping services sales representative peripheral placenta A4 shipping services sales representative central placenta (JGG; 07/20/2021) [facility] 07/20/2021 1325 Local . 02 Pathologist provided ICD-10: Z3A.40, O77.0, O82 . 02 CPT . 984458 Specimen Comment: A courtesy copy of this report has been sent to [phone] Specimen Comment: Report sent to Performed at: 01 [facility] [address] [place] [address] [id number] MD Jack Fowler MD Phone: [phone] Performed at: 02 [facility] [address] [place] [address] [id number] MD Kumar Concepcion MD Phone: [phone]
== END 2021-07-22 12:40 | disposition home or self-care (01) | DRG 788 ==
LOC: 3 SO LND 16:50
PROVIDERS: ADMIT Obstetrics & Gynecology; ATTEND Obstetrics & Gynecology
PROC: 10D00Z1 Extraction of Products of Conception, Low, Open Approach (ICD-10-PCS; principal; 2021-07-19)
DX: O13.4 Gestational [pregnancy-induced] hypertension without significant proteinuria, complicating childbirth (principal); O76 Abnormality in fetal heart rate and rhythm complicating labor and delivery; O99.824 Streptococcus B carrier state complicating childbirth; Z37.0 Single live birth; Z3A.39 39 weeks gestation of pregnancy; Z87.442 Personal history of urinary calculi
CPT/HCPCS: 36415; 80053; 81001; 82570; 83615; 84156; 84550; 85007; 85025; 85027; 86592; 86850; 86900; 86901; 87086; C1755; J0595; J0690; J1885; J2405; J2590; J7120; G0378